=== PATIENT | female | born 1985 | race Hispanic/Latino ===

== ENCOUNTER 2018-09-26 11:06 | Inpatient (IN) | payer MEDICAID ==
[2018-09-26] MEDS ORDERED: LACTATED RINGERS 3,000 ML ONE (11:34)
[2018-09-26] MEDS ORDERED: BICITRA PO SCH (11:39)
[2018-09-26] MEDS ORDERED: PEPCID IV ONE (11:39)
[2018-09-26] MEDS ORDERED: REGLAN ONE (11:43)
[2018-09-26] MEDS ORDERED: BICITRA ONE (11:43)
[2018-09-26] MEDS ORDERED: PITOCin/NS 20 UNIT/1000ML DRIP 20,000 MILLIUNITS/1,000 ML BAG IV ONE (11:51)
[2018-09-26] MEDS ORDERED: PITOCin/NS 20 UNIT/1000ML DRIP 20 UNITS/1,000 ML BAG IV SCH (12:00)
[2018-09-26] MEDS ORDERED: REGLAN IV ONE (12:00)
[2018-09-26] MEDS ORDERED: LACTATED RINGERS 1,000 ML IV SCH (12:00)
[2018-09-26] MEDS ORDERED: ANCEF/STERILE WATER 2 GM/20 ML 2 GM/20 ML SYRINGE IV NR (12:00)
[2018-09-26 12:21] LABS: Basophils # (Auto) 0.1 K/mm3 (0.0-0.1); Basophils % (Auto) 0.7 % (0.0-1.8); Eosinophils % (Auto) 0.3 % (0.0-4.3); Hematocrit 31.1 % (30.3-42.9); Hemoglobin 10.5 gm/dl (10.1-14.3); Lymphocytes # (Auto) 1.5 K/mm3 (1.2-5.4); Lymphocytes % (Auto) 11.8 % (13.4-35.0); Mean Corpuscular HGB Conc 34 % (30-34); Mean Corpuscular Volume 79 fl (79-97); Monocytes # (Auto) 0.6 K/mm3 (0.0-0.8); Monocytes % (Auto) 5.1 % (0.0-7.3); Platelet Count 326 K/mm3 (140-440); Red Blood Count 3.92 M/mm3 (3.65-5.03); Red Cell Distribution Width 14.7 % (13.2-15.2)
[2018-09-26] MEDS ORDERED: ZOFRAN IV PRN (12:33)
[2018-09-26] MEDS ORDERED: DULCOLAX PR PRN (12:33)
[2018-09-26] MEDS ORDERED: PHENERGAN PO PRN (12:33)
[2018-09-26] MEDS ORDERED: BENADRYL PO PRN (12:33)
[2018-09-26] MEDS ORDERED: LANSINOH TP PRN (12:33)
[2018-09-26] MEDS ORDERED: TUCKS PAD TP PRN (12:33)
[2018-09-26] MEDS ORDERED: TYLENOL PO PRN (12:33)
[2018-09-26] MEDS ORDERED: MILK OF MAGNESIA PO PRN (12:33)
[2018-09-26] MEDS ORDERED: PHENERGAN PR PRN (12:33)
--- NOTE | 2018-09-26 12:39 | History and Physical Report ---
History of Present Illness Date of examination: 09/26/18 Date of admission: 09/26/18 11:07 Chief complaint: Contractions History of present illness: 33-year-old at 38+3 weeks who presents to labor and delivery triage in active labor with regular uterine contractions. The patient had advanced cervical dilatation of 8 cm. The patient reports being incarcerated from January to June and after her release from group home [facility] was unable to obtain care by her report. The patient states that her last delivery was complicated by delivery. She reports a history of illicit drug use. Her GBS status is unknown. Past History Past Medical History: other Past Surgical History: section Social history: single (illicit drug use) - Obstetrical History Expected Date of Delivery: 10/07/18 Actual Gestation: 38 Week(s) 3 Day(s) : 6 Para: 5 Hx # Term Pregnancies: 5 Number of Pregnancies: 0 Spontaneous Abortions: 0 Induced : 0 Number of Living Children: 5 Medications and Allergies Allergies Allergy/AdvReac Type Severity Reaction Status Date / Time Penicillins Allergy Rash Verified 09/26/18 11:34 Home Medications Medication Instructions Recorded Confirmed Last Taken Type Promethazine [Phenergan] 25 mg PO Q6H PRN #12 tablet 07/10/13 02/01/14 01/30/14 12:00 Rx Vit37/Iron/Folic Acid 1 tab PO DAILY 12/04/13 02/01/14 01/31/14 09:00 History [[place]ata Chewable Tablet] Ibuprofen [Motrin 800 MG tab] 800 mg PO TID PRN #30 tablet 02/01/14 Unknown Rx Lidocain2.5%/Prilocai2.5% [Emla] 5 gm TP ONCE #1 tube 02/01/14 Unknown Rx oxyCODONE /ACETAMINOPHEN [Percocet 1 - 2 tab PO Q4HR PRN #30 tablet 02/01/14 Unknown Rx 5/325 mg] HYDROcodone/APAP 7.5-325 [[place] 1 each PO Q6HR PRN #7 tablet 02/11/14 Unknown Rx 7.5/325 mg] Ondansetron [Zofran Odt] 4 mg PO Q4H #10 tab.rapdis 02/11/14 Unknown Rx Active Meds: Active Medications Acetaminophen (Tylenol) 650 mg PO Q4H PRN PRN Reason: Pain MILD(1-3)/Fever >100.5/YOUSIF Bisacodyl (Dulcolax) 10 mg MN BID PRN PRN Reason: Constipation Citric Acid/Sodium Citrate (Bicitra) 30 ml PO ONCE FATMATA Stop: 09/26/18 23:00 Diphenhydramine HCl (Benadryl) 25 mg PO Q6H PRN PRN Reason: Itching Cefazolin Sodium (Ancef/Sterile Water 2 Gm/20 Ml) 2 gm in 20 mls @ 80 mls/hr IV PREOP NR; Protocol Stop: 09/26/18 23:00 Lactated Ringer's (Lactated Ringers) 1,000 mls @ 2,250 mls/hr IV PREOP FATMATA Stop: 09/27/18 12:27 Oxytocin/Sodium Chloride (Pitocin/Ns 20 Unit/1000ml Drip) 20 units in 1,000 mls @ 0 mls/hr IV TITR FATMATA Ibuprofen (Motrin) 600 mg PO Q6H FATMATA Magnesium Hydroxide (Milk Of Magnesia) 30 ml PO HS PRN PRN Reason: Constipation Multi-Ingredient Ointment (Lansinoh) 1 applic TP PRN PRN PRN Reason: Sore Nipples Ondansetron HCl (Zofran) 4 mg IV Q8H PRN PRN Reason: Nausea And Vomiting Promethazine HCl (Phenergan) 25 mg MN Q6H PRN PRN Reason: Nausea And Vomiting Promethazine HCl (Phenergan) 25 mg PO Q6H PRN PRN Reason: Nausea And Vomiting Sodium Chloride (Sodium Chloride Flush Syringe 10 Ml) 10 ml IV PRN NR [place]/Glycerin (Tucks Pad) 1 each TP PRN PRN PRN Reason: Hemorrhoid/cleansing/soothing Review of Systems All systems: negative Genitourinary: contractions - Vital Signs Vital signs: Vital Signs Pulse BP 129 H 173/96 09/26/18 11:16 09/26/18 11:16 Temp Pulse Resp BP Pulse Ox 112 H 124/71 09/26/18 12:32 09/26/18 12:32 - Physical Exam Breasts: Positive: deferred Cardiovascular: Regular rate Lungs: Positive: Clear to auscultation Results Result Diagrams: 09/26/18 11:30 Abnormal lab results 09/26/18 Range/Units 11:30 WBC 12.7 H (4.5-11.0) K/mm3 MCH 27 L (28-32) pg Lymph % (Auto) 11.8 L (13.4-35.0) % Seg Neutrophils % 82.1 H (40.0-70.0) % Seg Neutrophils # 10.4 H (1.8-7.7) K/mm3 All other labs normal. Assessment and Plan - Patient Problems (1) Active labor at term Current Visit: Yes Status: Acute Plan to address problem: Admit to labor and delivery (2) No care in current Current Visit: Yes Status: Acute (3) Previous delivery affecting , antepartum Current Visit: Yes Status: Acute
--- NOTE | 2018-09-26 12:44 | Procedure Note ---
OB Delivery Note - Delivery Date of Delivery: 09/26/18 Surgeon: ANGELA HOFFMAN Estimated blood loss: 200cc - Vaginal Delivery presentation: vertex Delivery position: OA Intrapartum events: no care, meconium Delivery monitor: external FHT Route of delivery: Delivery placenta: spontaneous Delivery cord: 3 umbilical vessels Episiotomy: none Delivery laceration: none Anesthesia: none Delivery comments: The patient progressed rapidly to complete complete +2. She had spontaneous rupture membranes with evidence of meconium stained fluid. The patient pushed to deliver a liveborn female with Apgars of 8 and 9 weight 6 lbs. 13 oz. After delivery of the head and the shoulders the cord was rapidly clamped and cut and the infant was passed to pediatrics in attendance. The placenta delivered spontaneously intact with a three-vessel cord. The placental surface was meconium-stained. The patient did not sustain any lacerations. Estimated blood loss of 200 mL - A at 1 minute: 8 at 5 minutes: 9 Gender: Female (weight 6 lbs. 13 oz.)
[2018-09-26] MEDS ORDERED: SODIUM CHLORIDE FLUSH SYRINGE 10 ML IV SCH (13:00)
[2018-09-26 18:48] LABS: Bilirubin,Urine NEG (Negative); Blood,Urine MOD (Negative); Color,Urine Yellow (Yellow); Mucus,Urine FEW /HPF; Urobilinogen,Urine < 2.0 mg/dL (<2.0)
[2018-09-26 18:56] LABS: Benzodiazepines Screen,Urine PRESUMPTIVE NEGATIVE; Cocaine Screen,Urine PRESUMPTIVE NEGATIVE; Methadone Screen,Urine PRESUMPTIVE NEGATIVE; Opiate Screen,Urine PRESUMPTIVE NEGATIVE
[2018-09-26 19:17] LABS: Amphetamine Screen,Urine PRESUMPTIVE POSITIVE; Cannabinoid Screen,Urine PRESUMPTIVE POSITIVE
[2018-09-26] MEDS: IBUPROFEN PO SCH (21:27)
[2018-09-27 00:42] LABS: Hematocrit 27.7 % (30.3-42.9); Hemoglobin 9.6 gm/dl (10.1-14.3)
[2018-09-27] MEDS: IBUPROFEN PO SCH ×3 (03:50→23:22)
[2018-09-27] MEDS ORDERED: M-M-R II VACCINE SUB-Q ONE (06:00)
--- NOTE | 2018-09-27 08:29 | Progress Note ---
Assessment and Plan - Patient Problems (1) Active labor at term Current Visit: Yes Status: Acute Plan to address problem: routine care DFACS will be involved secondary to +meth/THC (2) No care in current Current Visit: Yes Status: Acute (3) Previous delivery affecting , antepartum Current Visit: Yes Status: Acute Subjective - Subjective Date of service: 09/27/18 Interval history: Patient reports her perineum is burning from the delivery. Having mild cramping. Patient reports: appetite normal, voiding normally, pain well controlled Objective - Vital Signs Latest vital signs: Vital Signs Temp Pulse Resp BP Pulse Ox 09/26/18 23:28 97.6 F 107 H 19 114/87 98 09/26/18 19:47 98.0 F 130 H 18 138/91 97 09/26/18 14:02 114 H 149/93 09/26/18 13:47 112 H 138/84 09/26/18 13:32 95 H 132/85 09/26/18 13:02 115 H 127/91 09/26/18 12:32 112 H 124/71 09/26/18 12:29 111 H 125/74 09/26/18 11:47 133 H 143/69 09/26/18 11:37 123 H 137/93 09/26/18 11:16 129 H 173/96 Intake and Output 09/26/18 09/27/18 09/27/18 22:59 06:59 14:59 Intake Total 440 240 Output Total 700 Balance 440 -460 Intake: Oral 200 Intake, Free Water 240 240 Output: Urine 700 Void 700 Other: Total, Intake Amount 200 Total, Output Amount 100 - Exam Uterus: Present: normal - Labs Labs: Abnormal lab results 09/26/18 09/27/18 Range/Units 11:30 00:20 WBC 12.7 H (4.5-11.0) K/mm3 Hgb 9.6 L (10.1-14.3) gm/dl Hct 27.7 L (30.3-42.9) % MCH 27 L (28-32) pg Lymph % (Auto) 11.8 L (13.4-35.0) % Seg Neutrophils % 82.1 H (40.0-70.0) % Seg Neutrophils # 10.4 H (1.8-7.7) K/mm3
--- NOTE | 2018-09-27 08:33 | Discharge Summary ---
Providers - Providers Date of Admission: 09/26/18 11:07 Date of discharge: 09/28/18 Attending physician: ANGELA HOFFMAN Primary care physician: ANGELA HOFFMAN Hospitalization Reason for admission: active labor Delivery: Discharge diagnosis: IUP at term delivered Hospital course: Patient admitted in active labor with advanced dilation of 8cm. Had a with meconium stained fluid. No care of patient. +meth/THC Condition at discharge: Good Disposition: DC-01 TO HOME OR SELFCARE - Discharge Diagnoses (1) Active labor at term Status: Acute (2) No care in current Status: Acute (3) Previous delivery affecting , antepartum Status: Acute Plan - Discharge Medications Prescriptions: Ibuprofen [Motrin] 800 mg PO Q8HR PRN #60 tablet PRN Reason: Pain, Mild (1-3) - Provider Discharge Summary Activity: no sex for 6 weeks, no heavy lifting 4 weeks, no strenuous exercise Diet: routine Instructions: routine Additional instructions: [] Smoking cessation referral if applicable(refer to patient education folder for contact #) [] Refer to [facility] Booklet Call your doctor immediately for: * Fever > 100.5 * Heavy vaginal bleeding ( >1 pad per hour) * Severe persistent headache * Shortness of breath * Reddened, hot, painful area to leg or breast * schedule visit in 4 weeks - Follow up plan
[2018-09-27] MEDS: HABITROL TD SCH (14:45)
[2018-09-28] MEDS: HABITROL TD SCH (01:44)
[2018-09-28] MEDS: IBUPROFEN PO SCH (05:30)
[2018-09-28 09:37] VITALS: BP 123/90
== END 2018-09-28 14:30 | disposition home or self-care (01) | DRG 775 ==
LOC: TRG 11:06 → LD 11:07 → EEVIPCON 11:07 → LD 11:07 → TRG 12:31 → OB 15:16
PROVIDERS: ADMIT Obstetrics & Gynecology; ATTEND Obstetrics & Gynecology
PROC: 10E0XZZ Delivery of Products of Conception, External Approach (ICD-10-PCS; principal; 2018-09-26)
PROC: 3E0234Z Introduction of Serum, Toxoid and Vaccine into Muscle, Percutaneous Approach (ICD-10-PCS; 2018-09-27)
DX: O34.219 Maternal care for unspecified type scar from previous cesarean delivery (principal); O77.0 Labor and delivery complicated by meconium in amniotic fluid; Z3A.38 38 weeks gestation of pregnancy; Z37.0 Single live birth; Z88.0 Allergy status to penicillin; O99.324 Drug use complicating childbirth; F15.90 Other stimulant use, unspecified, uncomplicated; Z23 Encounter for immunization
CPT/HCPCS: 36415; 80307; 81001; 85014; 85018; 85025; 85461; 86592; 86706; 86762; 86850; 86870; 86900; 86901; 87806; 90471; 90707; G0378; J0690; J2590; J2765; J7120

== ENCOUNTER 2022-01-27 08:35 | Outpatient (CLI) | payer OTHER ==
--- NOTE | 2022-01-27 10:17 | Mammography Report ---
BILATERAL DIGITAL DIAGNOSTIC MAMMOGRAM WITH CAD -- 01/27/2022 LEFT LIMITED BREAST ULTRASOUND INDICATION: LT BREAST LUMP, PALP AREA TECHNIQUE: Digital bilateral mammographic imaging was performed. Spot compression views were obtaine d. Limited ultrasound was performed. This examination was interpreted with the benefit of Computer- ded Detection (CAD) analysis. COMPARISON: No relevant prior imaging study available. FINDINGS: Breast Density: There are scattered areas of fibroglandular density. MAMMOGRAPHIC FINDINGS: There is no evidence of dominant mass, suspicious calcifications or architectu ral distortion in the right breast. In the 9:00 left breast anteriorly 3-4 cm from the nipple is a ma ss with irregular margins measuring 1.3 x 1.0 cm. No other significant abnormality in the left breast . ULTRASOUND FINDINGS: Targeted ultrasound evaluation was performed of the area of interest. At the s ite of the patient's palpable abnormality in the 9:00 position is a hyperechoic mass with irregular m argins and mild vascularity seen along its periphery measuring 1.0 x 0.9 x 0.9 cm. No other significa nt abnormality is identified. IMPRESSION: Suspicious left breast mass as above. Biopsy with ultrasound guidance is recommended. Follow up recommendation: Biopsy BI-RADS Category 4: SUSPICIOUS FOR MALIGNANCY. A "normal" or negative report should not discourage follow up or biopsy of a clinically significant f inding. A written summary of these findings will be mailed to the patient. The patient will be entered into a mammography reporting system which will generate a reminder letter for the patient's next appointmen t at the appropriate interval. According to the [employer], yearly mammograms are recommended starting at age 40 and continuing as long as a woman is in good health. Breast MRI is recommended for women with an jason roximately 20-25% or greater lifetime risk of breast cancer, including women with a strong family his tory of breast or ovarian cancer and women who have been treated for Hodgkin's disease. Signer Name: Alcides Junior MD Signed: 01/27/2022 10:13 AM Workstation Name: [employer]
== END 2022-01-27 08:36 | disposition home or self-care (01) ==
LOC: MAMMO 08:35
PROVIDERS: ATTEND Family Medicine
DX: N63.20 Unspecified lump in the left breast, unspecified quadrant (principal)
CPT/HCPCS: 77066

== ENCOUNTER 2022-03-25 08:49 | Outpatient (CLI) | payer OTHER | END 2022-03-25 08:50 | disposition home or self-care (01) | LOC: LABHHL 08:49 | PROVIDERS: ATTEND Surgery | DX: N63.22 Unspecified lump in the left breast, upper inner quadrant (principal); N64.1 Fat necrosis of breast; N63.20 Unspecified lump in the left breast, unspecified quadrant | CPT/HCPCS: 88305; 88312; 88342 ==